=== PATIENT | female | born 1975 | race Caucasian/White ===

== ENCOUNTER 2017-08-05 23:05 | Emergency (ER) | payer BC ==
[~2017-08-05 23:05] MED LIST: AMOX-559 PO; ATOR10TA24 PO; ATOR20TA22 PO; AZIT-1 PO; BENZ200C15 PO; DOXY-179 PO; GUAI480S48 PO; IBU800 PO; L-NO1TBD6 PO; LABE200T31 PO; LEVO1TBD11 PO; LO OVRAL; LOSA100T67 PO; MAGN71.52 PO; MINOCY50PT PO; PRED20TA6 PO; SPIR25TA78 PO; Z PACK; [UNRECOGNIZED DRUG - CODE] PO
--- NOTE | 2017-08-05 23:07 | ER Report ---
History and Physical Time Seen By MD: 23:07 HPI/ROS CHIEF COMPLAINT: Abdominal pain HISTORY OF PRESENT ILLNESS: The patient is a 41-year-old female who presents with approximately 24 hours of GI symptoms. Patient started with some nausea vomiting and diarrhea yesterday, she notes that he'll contact with her son who has had a GI bug. The last episode of vomiting was around 1 PM yesterday. Last meal was around 6 PM this evening and was just some dry toast. Patient reports some nausea but no episodes of vomiting or diarrhea since 1 PM yesterday. Today however she began with periumbilical abdominal pain which now is migrating to the right lower quadrant. Describes the pain as "labor cramps. Patient had a prior history for exploratory laparoscopic for fertility treatments. Patient believes she is still has all of her organs including ovaries, uterus appendix. Patient denies any fevers or chills she denies chest pain or shortness of breath. REVIEW OF SYSTEMS: Constitutional: No fever, no chills. Eyes: No discharge. ENT: No sore throat. Cardiovascular: No chest pain, no palpitations. Respiratory: No cough, no shortness of breath. Gastrointestinal: Right lower quadrant abdominal pain with nausea vomiting and diarrhea Genitourinary: No hematuria. No vaginal discharge; no dysuria Musculoskeletal: No back pain. Skin: No rashes. Neurological: No headache. Allergies: Coded Allergies: No Known Allergies (Verified Allergy, Mild, 07/28/12) Home Meds Active Scripts Labetalol Hcl (LABETALOL HCL) 200 Mg Tablet, 1 TAB PO BID, #180 TAB 3 Refills Prov:CODY DUARTE MD 12/24/16 Reported Medications Spironolactone (SPIRONOLACTONE) Unknown Strength Tablet, PO, TAB 05/28/17 [id number]-Eqt Estr/Ethin Estra (SEASONIQUE 0.15-0.03-0.01 TAB) 1 Each Tbdspk.3mo , 1 EACH PO 05/28/17 Magnesium Chloride (SLOW-MAG) 71.5 Mg Tablet.dr, 71.5 MG PO 1-2XD 03/15/17 Atorvastatin Calcium (LIPITOR) 20 Mg Tablet, 1 TAB PO QDAY, TAB 11/14/16 Discontinued Scripts Doxycycline Hyclate (DOXYCYCLINE HYCLATE) 100 Mg Tablet, 1 TAB PO BID for 14 Days, #28 TAB 0 Refills Prov:PRATIBHA BENSON DNP, COIL TAPER-BC 07/01/17 Past Medical/Surgical History Hypertension Hx Smoking: No Smoking Status: Never Smoker Constitutional Vital Sign - Last 24 Hours 08/05/17 08/05/17 08/05/17 08/05/17 23:09 23:12 23:20 23:30 Temp 98.9 Pulse 106 103 Resp 16 B/P (MAP) 161/76 161/76 (104) 142/85 (104) Pulse Ox 97 97 O2 Delivery Room Air 08/05/17 08/05/17 08/06/17 08/06/17 23:35 23:50 00:00 00:05 Pulse 99 95 88 B/P (MAP) 128/72 (90) Pulse Ox 97 96 96 08/06/17 08/06/17 08/06/17 08/06/17 00:20 00:47 01:00 01:10 Pulse 84 87 B/P (MAP) 131/70 (90) 122/66 (84) Pulse Ox 96 97 08/06/17 01:15 Pulse 82 Physical Exam General/Constitutional: Patient is awake, alert, nontoxic and in no acute respiratory distress. Head: Normocephalic and atraumatic. Eyes: Conjunctival clear, Pupils are equal and reactive to light. Extraocular muscles are intact and symmetrical. Sclera are clear and anicteric. Ears:External canals are clear. Tympanic membranes are clear with normal landmarks and light reflex. Nares: No rhinorrhea or bleeding. Turbinates are pink and moist. Oropharyngeal: Mucous membranes are moist. There is no pharyngeal erythema or exudate. There are no palatal petechiae. Uvula is midline and symmetrical. Neck: Supple, no adenopathy. Cardiovascular: Heart is regular rate and rhythm without audible murmurs, rubs or gallops. Pulmonary: Lungs are clear to auscultation bilaterally. There are no wheezes, rales, or rhonchi. Chest rise is symmetrical Abdomen: Patient with guarding and rebound tenderness at McBurney's point with a positive Rovsing sign. Patient with normal bowel sounds. Extremities: No gross deformities, No peripheral cyanosis. Able to move all 4 extremities. Neuro: Alert and oriented X3, Cranial nerves 2 thru 12 are intact and symmetrical. Patient has normal gait. Skin: No rashes, skin is warm dry and well perfused. Medical Decision Making Data Points Result Diagram: 08/05/17 0322 08/05/17 2321 Laboratory Hematology Test 08/05/17 03:22 08/05/17 23:10 08/05/17 23:21 Red Blood Count 4.77 M/uL (4.17-5.56) Mean Corpuscular Volume 91.7 fL (80.0-96.0) Mean Corpuscular Hemoglobin 32.0 pg (26.0-33.0) Mean Corpuscular Hemoglobin Concent 34.9 g/dL (32.0-36.0) Red Cell Distribution Width 13.3 % (11.5-14.5) Mean Platelet Volume 9.4 fL (7.2-11.1) Neutrophils (%) (Auto) 63.8 % (39.4-72.5) Lymphocytes (%) (Auto) 30.9 % (17.6-49.6) Monocytes (%) (Auto) 4.4 % (4.1-12.4) Eosinophils (%) (Auto) 0.5 % (0.4-6.7) Basophils (%) (Auto) 0.4 % (0.3-1.4) Nucleated RBC Relative Count (auto) 0.1 /100WBC Neutrophils # (Auto) 3.2 K/uL (2.0-7.4) Lymphocytes # (Auto) 1.6 K/uL (1.3-3.6) Monocytes # (Auto) 0.2 K/uL (0.3-1.0) Eosinophils # (Auto) 0.0 K/uL (0.0-0.5) Basophils # (Auto) 0.0 K/uL (0.0-0.1) Nucleated RBC Absolute Count (auto) 0.00 K/uL Urine Color Yellow Urine Clarity Cloudy Urine pH 6.0 pH (4.8-9.5) Urine Specific [place] 1.019 Urine Protein Negative mg/dL (NEGATIVE) Urine Glucose (UA) Negative mg/dL (NEGATIVE) Urine Ketones Negative mg/dL (NEGATIVE) Urine Blood Small (NEGATIVE) Urine Nitrite Negative (NEGATIVE) Urine Bilirubin Negative (NEGATIVE) Urine Urobilinogen 4.0 mg/dL (0.2-1.9) Urine Leukocyte Esterase Large (NEGATIVE) Urine RBC 3 /HPF (0-2/HPF) Urine WBC 25 /HPF (0-5/HPF) Urine Squamous Epithelial Cells Many /LPF (</=FEW) Urine Transitional Epithelial Cells Many /LPF (NONE-FEW) Urine Bacteria Negative /HPF (NONE-FEW) Urine Mucus None /HPF (NONE-FEW) Urine HCG, Qualitative Negative (NEGATIVE) Sodium Level 136 mmol/L (137-145) Potassium Level 3.5 mmol/L (3.5-5.0) Chloride Level 101 mmol/L (98-107) Carbon Dioxide Level 23 mmol/L (22-31) Blood Urea Nitrogen 10 mg/dl (7-18) Creatinine 0.80 mg/dl (0.52-1.04) Glomerular Filtration Rate Calc > 60.0 Random Glucose 103 mg/dl (75-110) Calcium Level 8.2 mg/dl (8.4-10.2) Total Bilirubin 0.5 mg/dl (0.2-1.3) Aspartate Amino Transf (AST/SGOT) 25 U/L (0-35) Alanine Aminotransferase (ALT/SGPT) 27 U/L (0-56) Alkaline Phosphatase 73 U/L (0-126) Total Protein 7.3 gm/dl (6.3-8.2) Albumin 4.0 g/dl (3.5-5.0) Lipase 79 U/L (23-300) Chemistry Test 08/05/17 03:22 08/05/17 23:10 08/05/17 23:21 White Blood Count 5.0 k/uL (4.5-11.0) Red Blood Count 4.77 M/uL (4.17-5.56) Hemoglobin 15.3 g/dL (12.0-16.0) Hematocrit 43.8 % (34.0-47.0) Mean Corpuscular Volume 91.7 fL (80.0-96.0) Mean Corpuscular Hemoglobin 32.0 pg (26.0-33.0) Mean Corpuscular Hemoglobin Concent 34.9 g/dL (32.0-36.0) Red Cell Distribution Width 13.3 % (11.5-14.5) Platelet Count 279 K/uL (150-450) Mean Platelet Volume 9.4 fL (7.2-11.1) Neutrophils (%) (Auto) 63.8 % (39.4-72.5) Lymphocytes (%) (Auto) 30.9 % (17.6-49.6) Monocytes (%) (Auto) 4.4 % (4.1-12.4) Eosinophils (%) (Auto) 0.5 % (0.4-6.7) Basophils (%) (Auto) 0.4 % (0.3-1.4) Nucleated RBC Relative Count (auto) 0.1 /100WBC Neutrophils # (Auto) 3.2 K/uL (2.0-7.4) Lymphocytes # (Auto) 1.6 K/uL (1.3-3.6) Monocytes # (Auto) 0.2 K/uL (0.3-1.0) Eosinophils # (Auto) 0.0 K/uL (0.0-0.5) Basophils # (Auto) 0.0 K/uL (0.0-0.1) Nucleated RBC Absolute Count (auto) 0.00 K/uL Urine Color Yellow Urine Clarity Cloudy Urine pH 6.0 pH (4.8-9.5) Urine Specific [place] 1.019 Urine Protein Negative mg/dL (NEGATIVE) Urine Glucose (UA) Negative mg/dL (NEGATIVE) Urine Ketones Negative mg/dL (NEGATIVE) Urine Blood Small (NEGATIVE) Urine Nitrite Negative (NEGATIVE) Urine Bilirubin Negative (NEGATIVE) Urine Urobilinogen 4.0 mg/dL (0.2-1.9) Urine Leukocyte Esterase Large (NEGATIVE) Urine RBC 3 /HPF (0-2/HPF) Urine WBC 25 /HPF (0-5/HPF) Urine Squamous Epithelial Cells Many /LPF (</=FEW) Urine Transitional Epithelial Cells Many /LPF (NONE-FEW) Urine Bacteria Negative /HPF (NONE-FEW) Urine Mucus None /HPF (NONE-FEW) Urine HCG, Qualitative Negative (NEGATIVE) Glomerular Filtration Rate Calc > 60.0 Calcium Level 8.2 mg/dl (8.4-10.2) Total Bilirubin 0.5 mg/dl (0.2-1.3) Aspartate Amino Transf (AST/SGOT) 25 U/L (0-35) Alanine Aminotransferase (ALT/SGPT) 27 U/L (0-56) Alkaline Phosphatase 73 U/L (0-126) Total Protein 7.3 gm/dl (6.3-8.2) Albumin 4.0 g/dl (3.5-5.0) Lipase 79 U/L (23-300) Urinalysis Test 08/05/17 23:10 Urine Color Yellow Urine Clarity Cloudy Urine pH 6.0 pH (4.8-9.5) Urine Specific [place] 1.019 Urine Protein Negative mg/dL (NEGATIVE) Urine Glucose (UA) Negative mg/dL (NEGATIVE) Urine Ketones Negative mg/dL (NEGATIVE) Urine Blood Small (NEGATIVE) Urine Nitrite Negative (NEGATIVE) Urine Bilirubin Negative (NEGATIVE) Urine Urobilinogen 4.0 mg/dL (0.2-1.9) Urine Leukocyte Esterase Large (NEGATIVE) Urine RBC 3 /HPF (0-2/HPF) Urine WBC 25 /HPF (0-5/HPF) Urine Squamous Epithelial Cells Many /LPF (</=FEW) Urine Transitional Epithelial Cells Many /LPF (NONE-FEW) Urine Bacteria Negative /HPF (NONE-FEW) Urine Mucus None /HPF (NONE-FEW) Urine HCG, Qualitative Negative (NEGATIVE) EKG/Imaging Imaging FACILITY: [facility] [place] PATIENT NAME: Christa Ko : 1975 MR: [id number] V: [id number] EXAM DATE: ORDERING PHYSICIAN: KEZIA ESCALONA TECHNOLOGIST: Location: [facility] - [place] Patient: Christa Ko : 1975 Visit/Account:[id number] Date of Sevice: 08/05/2017 ABDOMEN/PELVIS WITH CONTRAST COMPARISONS: None. ADDITIONAL PERTINENT HISTORY: Right lower quadrant pain TECHNIQUE: Multiple axial images were obtained from the lung bases through the lesser trochanters before and after the IV administration of IV contrast. One of the following dose optimization techniques was utilized in the performance of this exam: Automated exposure control; adjustment of the mA and/or kV according to the patient's size; or use of an iterative reconstruction technique. Specific details can be referenced in the facility's radiology CT exam operational policy. CONTRAST: 75 ml of Isovue-370 FINDINGS: Lung bases: Negative. Free air and free fluid: None. Liver: Negative. Spleen: Negative. Kidneys, ureters and urinary bladder: Negative. Adrenal glands: Negative. Pancreas: Negative. Gallbladder: Negative. Bowel and mesentery: Negative.. Pelvic contents: Negative Lymph node assessment: Negative. Retroperitoneum: Negative. Abdominal vasculature: Negative. Surrounding soft tissues: Negative. Osseous structures: Negative. IMPRESSION: Normal CT of the abdomen and pelvis. Report Dictated By: Sedrick Stoddard MD at 08/06/2017 12:55 AM Report E-Signed By: Sedrick Stoddard MD at 08/06/2017 12:58 AM WSN:[id number] ED Course/Re-evaluation Clinical Indication for ER IV: Hydration, IV Access ED Course 08/05/2017 11:33:29 pm After history and physical exam was performed differential diagnosis was formulated which includes but is not limited to acute appendicitis, mesenteric adenitis, urinary tract infection, [employer]ETING [employer]ATIONS MA[employer]GER and ovarian causes. Plan at this time will be to perform an abdominal workup including CBC CMP and lipase. Urine test was read as negative.. Patient was made nothing by mouth, we will start an IV. We will give Toradol and Zofran for pain. We will perform a CT scan of the abdomen and pelvis Decision to Disposition Date: Aug 06, 2017 Decision to Disposition Time: 01:09 Depart Departure Latest Vital Signs Vital Signs Date Time Temp Pulse Resp B/P (MAP) Pulse Ox O2 Delivery O2 Flow Rate FiO2 08/06/17 01:15 82 08/06/17 01:10 97 08/06/17 01:00 122/66 (84) 08/05/17 23:09 98.9 16 Room Air Impression: Primary Impression: Abdominal pain Condition: Improved Disposition: HOME OR SELF-CARE Referrals: CODY DUARTE MD (PCP) Patient Instructions: Abdominal Pain (ED) Additional Instructions: Return to the emergency department if your abdominal pain returns and otherwise follow up with her primary care provider for routine health maintenance. you may take Zofran 1 tablet every 8 hours as needed for nausea You may take Bentyl one tablet every 6 hours as needed for abdominal cramping Problem Qualifiers Primary Impression: Abdominal pain Abdominal location: lower abdomen, unspecified Qualified Codes: R10.30 - Lower abdominal pain, unspecified KEZIA ESCALONA MD Aug 05, 2017 23:07
[2017-08-05] MEDS ORDERED: ONDANSETRON 4 MG/2 ML VIAL IVP ONE (23:30)
[2017-08-05] MEDS ORDERED: KETOROLAC 30 MG/ML VIAL IVP ONE (23:30)
[2017-08-05] MEDS ORDERED: NS(*) 0.9% 1000 ML BAG 1,000 ML IV ONE (23:30)
[2017-08-05 23:48] LABS: PLATELET COUNT, AUTOMATED 279 K/uL (150-450)
[2017-08-06] MEDS ORDERED: IOPAMIDOL 76% 75 ML INFUS BTL 75 ML ONE (00:24)
--- NOTE | 2017-08-06 00:45 | EKG ---
FACILITY: [facility] - [place] PATIENT NAME: ELFEGO LOUIE : [id number] MR: [id number] V: [id number] EXAM DATE: ORDERING PHYSICIAN: KEZIA ESCALONA TECHNOLOGIST: ISMAEL Test Reason : AB PAIN Blood Pressure : / mmHG Vent. Rate : 093 BPM Atrial Rate : 093 BPM P-R Int : 132 ms QRS Dur : 082 ms QT Int : 370 ms P-R-T Axes : 038 021 032 degrees QTc Int : 460 ms Normal sinus rhythm Prolonged QT Abnormal ECG When compared with ECG of 28-JUL-2012 15:19, No significant change was found Confirmed by ESPERANZA DÍAZ ([id number]) on 08/06/2017 7:09:37 AM Referred By: Confirmed By:ESPERANZA DÍAZ
[2017-08-06 01:00] VITALS: BP 122/66
--- NOTE | 2017-08-06 01:02 | RADIOLOGY IMAGING REPORT ---
FACILITY: [facility] - [place] PATIENT NAME: Christa Ko : 1975 MR: [id number] V: [id number] EXAM DATE: ORDERING PHYSICIAN: KEZIA ESCALONA TECHNOLOGIST: Location: [facility] Patient: Christa Ko : 1975 Visit/Account:[id number] Date of Sevice: 08/05/2017 ABDOMEN/PELVIS WITH CONTRAST COMPARISONS: None. ADDITIONAL PERTINENT HISTORY: Right lower quadrant pain TECHNIQUE: Multiple axial images were obtained from the lung bases through the lesser trochanters bef ore and after the IV administration of IV contrast. One of the following dose optimization technique s was utilized in the performance of this exam: Automated exposure control; adjustment of the mA and/ or kV according to the patient's size; or use of an iterative reconstruction technique. Specific de tails can be referenced in the facility's radiology CT exam operational policy. CONTRAST: 75 ml of Isovue-370 FINDINGS: Lung bases: Negative. Free air and free fluid: None. Liver: Negative. Spleen: Negative. Kidneys, ureters and urinary bladder: Negative. Adrenal glands: Negative. Pancreas: Negative. Gallbladder: Negative. Bowel and mesentery: Negative.. Pelvic contents: Negative Lymph node assessment: Negative. Retroperitoneum: Negative. Abdominal vasculature: Negative. Surrounding soft tissues: Negative. Osseous structures: Negative. IMPRESSION: Normal CT of the abdomen and pelvis. Report Dictated By: Sedrick Stoddard MD at 08/06/2017 12:55 AM Report E-Signed By: Sedrick Stoddard MD at 08/06/2017 12:58 AM WSN:[id number]
[2017-08-06] MEDS ORDERED: ONDANSETRON 4 MG ODT TH SL ONE (01:15)
[2017-08-06] MEDS ORDERED: DICYCLOMINE HCL 10 MG CAP PO ONE (01:15)
== END 2017-08-06 01:20 | disposition home or self-care (01) ==
LOC: ER 23:25
DX: R10.30 Lower abdominal pain, unspecified (principal)
CPT/HCPCS: 74177; 81001; 81025; 83690; 85025; 87088; 93005; 96361; 96374; 96375; 99284; J1885; J2405; J7030; Q9967; S0119; 82040; 82247; 82310; 82374; 82435; 82565; 82947; 84075; 84132; 84155; 84295; 84450; 84460; 84520

== ENCOUNTER → 2017-08-19 | Outpatient (CLI) | payer BC ==
[~2017-08-19] MED LIST changes: +METH4TAB66 PO; +MINO75CA PO; +MULT1TAB64 PO; +SULF-198 PO
--- NOTE | 2017-08-19 14:47 | RADIOLOGY IMAGING REPORT ---
FACILITY: [facility] [place] PATIENT NAME: Christa Ko : 1975 MR: [id number] V: [id number] EXAM DATE: ORDERING PHYSICIAN: MAIKOL SMITH TECHNOLOGIST: Location: [facility] Patient: Christa Ko : 1975 Visit/Account:[id number] Date of Sevice: 08/19/2017 SINUSES W/O CONTRAST COMPARISONS: None ADDITIONAL PERTINENT HISTORY: Chronic sinusitis TECHNIQUE: Multiple axial images were obtained through the paranasal sinuses with coronal and sagitta l reformatted images. No IV contrast was administered. One of the following dose optimization techni ques was utilized in the performance of this exam: Automated exposure control; adjustment of the mA a nd/or kV according to the patient's size; or use of an iterative reconstruction technique. Specific details can be referenced in the facility's radiology CT exam operational policy. FINDINGS: Maxillary sinuses: Negative. Frontal sinuses: Negative. Ethmoid air cells: Negative. Sphenoid sinuses:Negative. Nasal septum: Mild nasal septal deviation to the right. 4 mm bony spur projected to the right.. Drainage pathways: Patent Paranasal variance: Large bilateral Dolores cells without inflammatory change. Medial orbital núñez, cribriform plate, and orbital floors: Negative. Visualized bony skull base Negative. Visualized intracranial contents: Negative. Orbits and surrounding soft tissues: Negative. IMPRESSION: 1. No significant paranasal sinus disease. 2. Moderate nasal septal deviation to the right with a 4 mm bony spur projected to the right. Report Dictated By: Sedrick Stoddard MD at 08/19/2017 2:37 PM Report E-Signed By: Sedrick Stoddard MD at 08/19/2017 2:42 PM WSN:[id number]
== END ==
LOC: CT 01:44
PROVIDERS: ATTEND Otolaryngology
DX: J34.2 Deviated nasal septum (principal)
CPT/HCPCS: 70486

== ENCOUNTER → 2017-11-27 | Outpatient (CLI) | payer BC ==
[~2017-11-27] MED LIST changes: +FLUT16SP19 NS; +LABE200T35 PO; +PANT40TA65 PO; -SPIR25TA78 PO; +SPIR25TA80 PO
[2017-11-27 09:59] LABS: PLATELET COUNT, AUTOMATED 281 K/uL (150-450)
[2017-11-27 10:15] LABS: LDL CHOLESTEROL 70 mg/dl
== END ==
LOC: LAB 09:40
PROVIDERS: ATTEND Internal Medicine
DX: E78.5 Hyperlipidemia, unspecified (principal); I10 Essential (primary) hypertension; L70.0 Acne vulgaris
CPT/HCPCS: 36415; 81001; 82040; 82247; 82310; 82374; 82435; 82465; 82565; 82947; 83718; 83735; 84075; 84132; 84155; 84295; 84443; 84450; 84460; 84478; 84520; 85025